=== PATIENT | female | born 1965 | race Caucasian/White ===

== ENCOUNTER → 2019-03-17 | Outpatient (CLI) | payer OTHER ==
[~2019-03-17] MED LIST: AMLO-127 PO; DOCU-416 PO; IBUP800T37 PO; LOSA-54 PO; LOSA100T75 PO; METO50TA19 PO; NAPR-1043 PO; OXYC-865 PO; TRIA15OI20 TP
--- NOTE | 2019-03-17 19:00 | RADIOLOGY IMAGING REPORT ---
FACILITY: [facility] PATIENT NAME: Eric Pack : 1965 MR: [id number] V: [id number] EXAM DATE: ORDERING PHYSICIAN: SAI ROYAL TECHNOLOGIST: Location: [facility] [place] Patient: Eric Pack : 1965 Visit/Account:[id number] Date of Sevice: 03/17/2019 HIP LEFT Indication: Left hip pain for years. Comparison: None available Findings: There is no acute fracture or dislocation of the left hip. Minimal degenerative changes within the hips. 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 Minimal degenerative changes of the sacroiliac joints. IMPRESSION: 1. No acute osseous abnormality left hip. 2. Chronic findings, as above. Report Dictated By: Darian Coats MD at 03/17/2019 6:51 PM Report E-Signed By: Darian Coats MD at 03/17/2019 6:52 PM [id number]
== END ==
LOC: RAD 16:30
PROVIDERS: ATTEND Neurological Surgery
DX: M25.552 Pain in left hip (principal)